=== PATIENT | male | born 1950 | race Caucasian/White ===

== ENCOUNTER 2024-01-04 18:18 | Emergency (ER) | payer MEDICARE, BC ==
[2024-01-04 18:37] VITALS: BP 180/102; PULSE 69
[2024-01-04] MEDS: Diphtheria,Pertussis(Acell),Tetanus Vaccine 0.5 ML Syringe IM ONE (19:12)
[2024-01-04] MEDS: Bupivacaine 0.5% 10 ML SDV INJECT ONE (19:12)
[2024-01-04] MEDS: Lidocaine 1% 10 ML MDV INJECT ONE (19:12)
== END 2024-01-04 20:30 | disposition home or self-care (01) ==
LOC: JD.ED 18:18
DX: S61.211A Laceration without foreign body of left index finger without damage to nail, initial encounter (principal); Z23 Encounter for immunization; Z79.82 Long term (current) use of aspirin; Z79.899 Other long term (current) drug therapy; W20.8XXA Other cause of strike by thrown, projected or falling object, initial encounter
CPT/HCPCS: 12002; 73140; 90471; 90715; 99283; J0665; J3490

== ENCOUNTER 2025-02-06 16:57 | Emergency (ER) | payer MEDICARE, BC ==
[2025-02-06 17:55] LABS: BASOPHILS PERCENT AUTO 0.3 % (0.0-1.0); EOSINOPHILS ABSOLUTE AUTO 0.2 K/mm3 (0.0-0.4); EOSINOPHILS PERCENT AUTO 2.7 % (0.0-6.0); HEMATOCRIT 41.2 % (42.0-52.0); HEMOGLOBIN 13.7 gm/dl (14.0-18.0); IMMATURE GRAN ABSOLUTE AUTO 0.01 K/mm3 (0.00-0.05); IMMATURE GRAN PERCENT AUTO 0.2 % (0.0-0.4); LYMPHOCYTES ABSOLUTE AUTO 1.7 K/mm3 (1.0-4.8); LYMPHOCYTES PERCENT AUTO 28.4 % (24.0-44.0); MEAN CORPUSCULAR HEMOGLOBIN 29.4 pg (28.0-32.0); MEAN CORPUSCULAR HGB CONC 33.3 g/dl (32.0-36.0); MEAN CORPUSCULAR VOLUME 88.4 fl (83.0-99.0); MEAN PLATELET VOLUME 10.8 fl (9.4-12.4); MONOCYTES ABSOLUTE AUTO 0.5 K/mm3 (0.0-0.8); NEUTROPHILS ABSOLUTE AUTO 3.5 K/mm3 (1.8-7.7); NEUTROPHILS PERCENT AUTO 59.4 % (41.0-71.0); PLATELET COUNT,PLT 146 K/mm3 (150-400); RED BLOOD CELL COUNT 4.66 M/mm3 (4.52-5.90); WHITE BLOOD CELL COUNT,WBC 5.87 K/mm3 (3.9-11.3)
[2025-02-06 18:23] LABS: A/G RATIO 1.1 (1-2); ALBUMIN 3.7 g/dl (3.4-5.0); ANION GAP 13.1 (5-15); BILIRUBIN TOTAL 0.4 mg/dL (0.2-1.0); BUN/CREATININE RATIO 18.9 (14-18); C-REACTIVE PROTEIN 0.3 mg/dL (<0.30); CREATININE 0.9 mg/dL (0.7-1.3); EST CRCL DRUG DOSING (CG) 79.04 mL/min; POTASSIUM,K 4.1 mEq/L (3.5-5.1)
[2025-02-06 18:59] VITALS: BP 142/72; PULSE 82
== END 2025-02-06 18:55 | disposition home or self-care (01) ==
LOC: JD.ED 16:57
DX: L03.116 Cellulitis of left lower limb (principal); Z79.82 Long term (current) use of aspirin; Z79.899 Other long term (current) drug therapy
CPT/HCPCS: 36415; 73590-26-LT; 73590-LT; 80053; 85025; 86140; 93971-26-LT; 93971-LT; 99284